=== PATIENT | female | born 1990 | race Caucasian/White ===

== ENCOUNTER 2017-03-12 02:11 | Inpatient (IN) | payer SELFPAY ==
[~2017-03-12 02:11] MED LIST: ABILIFY15 MG PO; ALBUTEROL SULF8.5 G1 IH; ALBUTEROL0.42 MG/ML IH; ALBUTEROL0.83 MG/ML INH; ALBUTEROL17 GM INH; AMOXICILLIN875 M1 PO; ATIVAN0.5 M1 PO; BACTRIM DS TAB1 EAC2 PO; BENADRYL25 MG PO; BUSPIRONE HCL10 M2 PO; BUSPIRONE HCL15 M2 PO; CIPRO500 MG PO; CLEOCIN HCL300 MG PO; DELTASONE10 MG PO; FLAGYL500 M1 PO; HYDROXYZINE HCL50 MG PO; IBUPROFEN600 MG PO; LAMICTAL150 MG PO; LAMICTAL25 MG PO; LEVAQUIN500 M1 PO; MACROBID 100 M100 MG PO; MACRODANTIN50 MG PO; NORCO 5-325 TA1 EACH PO; NORCO 5/325 TAB1 TAB PO; PENICILLIN V P500 M1 PO; PREDNISONE10 MG PO; PRENATAL1 EACH PO; PROVENTIL HFA6.7 GM IH; TESSALON200 MG PO; TRAZODONE HCL150 MG PO; TYLENOL #31 TA2 PO; TYLENOL WITH C1 EACH PO; VENTOLIN HFA18 G1 IH; VENTOLIN HFA18 G2 PO; WELCHOL625 MG PO; ZANTAC 2525 MG; ZOFRAN ODT4 MG/UDTAB PO
[2017-03-12 03:43] LABS: BASO % 0.1 % (0-2); EOS % 2.6 % (0-7); EOSINOPHIL ABSOLUTE COUNT 0.4 tho/cmm (0.0-0.7); HCT-HEMATOCRIT 41.2 % (34.0-49.0); HGB-HEMOGLOBIN 14.5 gm/dl (12.0-15.5); IMMATURE GRANULOCYTES ABSOLUTE 0.03 tho/cmm (0-0.03); IMMATURE GRANULOCYTES PERCENT 0.2 % (0-0.3); LYMPH % 24.6 % (20-45); LYMPH ABSOLUTE COUNT 3.8 tho/cmm (0.8-4.5); MCH (MEAN CORPUSCULAR HGB) 31.9 pg (28.0-32.0); MCHC MEAN CORPUSCULAR HGB CONC 35.2 % (32.0-36.0); MCV (MEAN CELL VOLUME) 90.7 fl (82.0-96.0); MEAN PLATELET VOLUME 9.4 cmc (9.4-12.4); MONO % 6.3 % (0-12); NEUTROPHIL ABSOLUTE COUNT 10.1 tho/cmm (1.6-8.0); NEUTROPHIL-AUTOMATED 10.1 tho/cmm (1.6-8.0); NEUTROPHILS % 66.2 % (40-80); PLATELET COUNT 230 tho/cmm (150-450); RED BLOOD COUNT 4.54 mil/cmm (4.00-5.20); RED CELL DISTRIBUTION WIDTH 12.3 % (12.4-16.4); WHITE BLOOD COUNT 15.2 tho/cmm (4.0-10.0)
[2017-03-12 03:59] LABS: PREGNANCY-SERUM NEGATIVE (NEGATIVE)
[2017-03-12 04:06] LABS: ANION GAP 9 mmol/L (0-20); BLOOD UREA NITROGEN 8 mg/dl (6-24); CALCIUM 8.4 mg/dl (8.5-10.5); CARBON DIOXIDE-VENOUS 24 mmol/L (22-32); CHLORIDE 109 mmol/l (96-110); CREATININE 0.65 mg/dl (0.50-1.10); GLUCOSE 95 mg/dL (70-110); POTASSIUM 3.6 mmol/L (3.7-5.1); SODIUM 138 mmol/L (135-145); eGFR VALUE FOR BLACK >90 mL/Min
[2017-03-12 08:18] LABS: INR 1.1 INR (0.9-1.1)
[2017-03-12 08:26] LABS: C-REACTIVE PROTEIN <0.3 mg/dl (0-0.9)
[2017-03-12 09:07] LABS: PROCALCITONIN <0.05 ng/ml (0.05-0.09)
--- NOTE | 2017-03-12 21:05 | NUR ---
VIRTUAL CARE NOTE: ASSESSMENT DEFFERED. PT WAS NOT IN ROOM, NOW PT IS SLEEPING. WILL CONTINUE WITH CHART REVIEW.
[2017-03-12 21:17] LABS: URINE APPEARANCE CLEAR; URINE COLOR YELLOW; URINE LEUKOCYTE ESTERASE NEGATIVE (NEG); URINE SPECIFIC GRAVITY 1.005 (1.003-1.030)
[2017-03-12 21:18] LABS: URINE BILIRUBIN NEGATIVE (NEG); URINE BLOOD NEGATIVE (NEG); URINE GLUCOSE (UA) NEGATIVE (NEG); URINE KETONE NEGATIVE (NEG); URINE NITRITE NEGATIVE (NEG); URINE PROTEIN NEGATIVE (NEG)
[2017-03-13 05:44] LABS: ANION GAP 13 mmol/L (0-20); BLOOD UREA NITROGEN 5 mg/dl (6-24); CALCIUM 8.2 mg/dl (8.5-10.5); CARBON DIOXIDE-VENOUS 22 mmol/L (22-32); CHLORIDE 109 mmol/l (96-110); CREATININE 0.65 mg/dl (0.50-1.10); GLUCOSE 95 mg/dL (70-110); SODIUM 140 mmol/L (135-145); eGFR VALUE FOR BLACK >90 mL/Min
[2017-03-13 05:46] LABS: BASO % 0.2 % (0-2); EOSINOPHIL ABSOLUTE COUNT 0.3 tho/cmm (0.0-0.7); HCT-HEMATOCRIT 36.8 % (34.0-49.0); HGB-HEMOGLOBIN 12.7 gm/dl (12.0-15.5); IMMATURE GRANULOCYTES ABSOLUTE 0.03 tho/cmm (0-0.03); IMMATURE GRANULOCYTES PERCENT 0.3 % (0-0.3); LYMPH % 26.1 % (20-45); LYMPH ABSOLUTE COUNT 2.7 tho/cmm (0.8-4.5); MCH (MEAN CORPUSCULAR HGB) 31.1 pg (28.0-32.0); MCHC MEAN CORPUSCULAR HGB CONC 34.5 % (32.0-36.0); MEAN PLATELET VOLUME 9.5 cmc (9.4-12.4); MONO % 5.8 % (0-12); MONOCYTE ABSOLUTE COUNT 0.6 tho/cmm (0.0-1.2); NEUTROPHIL ABSOLUTE COUNT 6.7 tho/cmm (1.6-8.0); NEUTROPHIL-AUTOMATED 6.7 tho/cmm (1.6-8.0); NEUTROPHILS % 64.6 % (40-80); PLATELET COUNT 213 tho/cmm (150-450); RED BLOOD COUNT 4.09 mil/cmm (4.00-5.20); RED CELL DISTRIBUTION WIDTH 12.1 % (12.4-16.4); WHITE BLOOD COUNT 10.4 tho/cmm (4.0-10.0)
[2017-03-13 05:56] LABS: POTASSIUM 3.5 mmol/L (3.7-5.1)
--- NOTE | 2017-03-13 09:59 | NUR ---
JACOBY SINGLETARY-VISITED WITH PATIENT SHE LAY IN BED STATING THAT PAIN IS BEING CONTROLLED THE BEST IT CAN WITH THE NAUSEA SHE HAS ALSO. STATES SHE DOES NOT HAVE TO USE HER CALL LIGHT MUCH BUT IT IS ANSWERED PROMPTLY. PATIENT IS AWARE OF SURGERY LATER THIS AFTERNOON AND WAS WONDERING IF THEY WERE GOING TO TAKE ANY OF HER BONE ALSO. TOLD HER DR. HALL WOULD BE THE ONE TO ANSWER THAT QUESTION SO FOR HER TO ASK HIM WHEN HE EXPLAINS HER SURGERY. NO FURTHER QUESTIONS OR CONCERNS AT THIS TIME. CHART REVIEWED
[2017-03-14] MEDS ORDERED: HYDROCODON-ACE1 EA16 PO (15:10)
[2017-03-14] MEDS ORDERED: TYLENOL325 M2 PO ×2 (15:10→15:11)
[2017-03-14] MEDS ORDERED: PHENERGAN12.5 M2 PO (15:42)
[2017-03-14] MEDS ORDERED: CLEOCIN HCL300 M1 PO (15:44)
[2017-06-05] MEDS ORDERED: MEDROL4 M2 PO (06:00)
[2017-08-18] MEDS ORDERED: ZITHROMAX250 M1 PO (05:08)
== END 2017-03-14 16:25 | DRG 158 ==
LOC: EDMED 02:11 → EMR2 07:49 → 5WD 08:05 → ORE 03-13 16:37 → PACU 03-13 17:53 → 5WD 03-13 19:00
PROVIDERS: Internal Medicine; Physician Assistant; ADMIT Hospitalist
PROC: 0CTX0Z0 Resection of Lower Tooth, Single, Open Approach (ICD-10-PCS; principal; 2017-03-13)
PROC: 0CTW0Z1 Resection of Upper Tooth, Multiple, Open Approach (ICD-10-PCS; 2017-03-13)
PROC: 0C95XZZ Drainage of Upper Gingiva, External Approach (ICD-10-PCS; 2017-03-13)
DX: K04.7 Periapical abscess without sinus (principal); L03.211 Cellulitis of face; M86.9 Osteomyelitis, unspecified; K02.9 Dental caries, unspecified; J45.909 Unspecified asthma, uncomplicated; F41.9 Anxiety disorder, unspecified; F31.9 Bipolar disorder, unspecified; F20.9 Schizophrenia, unspecified; F17.220 Nicotine dependence, chewing tobacco, uncomplicated; R00.0 Tachycardia, unspecified
CPT/HCPCS: J0295; J1170; J1885; J2250; J2270; J2405; J2543; J3010; J3370; J7030; Q9967